=== PATIENT | female | born 1975 | race Caucasian/White ===

== ENCOUNTER 2019-06-22 01:24 | Observation (INO) ==
[2019-06-22 02:02] LABS: Microscopic, Urine URINE MICROSCOPIC (MICROSCOPIC)
[2019-06-22 02:05] LABS: Basophils # 0.1 K/mm3 (0-0.2); Basophils % 0.9 % (0.1-2.0); Eosinophils # 0.1 K/mm3 (0.0-0.4); Eosinophils % 1.4 % (0.1-12.0); Hematocrit 42.2 % (37.0-47.0); Hemoglobin 14.2 g/dL (12.2-16.2); Lymphocytes % 38.5 % (10-50); Mean Corpuscular HGB Conc 33.6 g/dL (31.8-35.4); Mean Platelet Volume 7.9 fl (7.4-10.4); Monocytes # 0.6 K/mm3 (0.1-1.0); Neutrophils # 5.6 K/mm3 (1.8-7.8); Neutrophils % 53.2 % (37.0-80.0); Platelet Count 357 K/mm3 (142-424); Red Blood Count 4.97 M/mm3 (4.20-5.40); White Blood Count 10.5 K/mm3 (4.8-10.8)
[2019-06-22 02:12] LABS: Appearance,Urine CLEAR (Clear); Bilirubin,Urine Negative (Negative); Blood, Urine Negative (Negative); Color,Urine YELLOW (Yellow); Glucose,Urine (UA) Negative (Negative); Ketones,Urine Negative (Negative); Leukocyte Esterase,Urine Negative (Negative); Protein,Urine Negative (Negative); Specific Gravity, Urine 1.015 (1.005-1.030); Urobilinogen,Urine 0.2 EU/dl (0.2)
[2019-06-22 02:18] LABS: Amphetamine/Metha Screen,Urine Negative ng/mL (<1000); Barbiturates Screen,Urine Negative ng/mL (<200); Benzodiazepines Screen,Urine Negative ng/mL (<200); Cannabinoid Screen,Urine Negative ng/mL (<50); Cocaine Screen,Urine Negative ng/mL (<300); Methadone Screen,Urine Negative ng/mL (<300); Opiate Screen,Urine Negative ng/mL (<300); Phencyclidine Screen,Urine Negative ng/mL (<25)
[2019-06-22 02:20] LABS: Anion Gap 14.5 mEq/L (5-15); Blood Urea Nitrogen 7 mg/dL (7-18); C-Reactive Protein 0.4 mg/dL (0.0-0.9); Calcium 9.3 mg/dL (8.5-10.1); Carbon Dioxide 26 mmol/L (21.0-32.0); Chloride 104 mmol/L (98-107); Glucose 100 mg/dL (74-106); Sodium 141 mmol/L (136-145)
--- NOTE | 2019-06-22 02:47 | Emergency Department Note ---
ED Disposition Clinical Impression: Obesity (BMI 30.0-34.9), Tobacco use Chest pain Qualifiers: Chest pain type: precordial pain Qualified Code(s): R07.2 - Precordial pain Disposition: Admitted as Observation Condition on Discharge: Good Referrals: Provider,Referral, [Primary Care Provider] - - Critical Care Critical Care Time: No Attestation: On 06/22/19, the high probability of a clinically significant, sudden or life threatening deterioration of the following system(s) required my full and direct attention, intervention and personal management. The time I documented below is in addition to time spent performing reported procedures but includes the following listed in this critical care notation. Medical Decision Making - Medical Records Medical records reviewed: Yes: I reviewed the patient's medical records. - Alphonso Inquiry Pt receiving controlled substance: No Vital Signs: 06/22/19 01:26 Temperature 97.8 F Temperature Source Oral Pulse Rate [Right Brachial] 82 Respiratory Rate 18 Blood Pressure [Right Arm] 127/85 Blood Pressure Mean [Right Arm] 99 Blood Pressure Source [Right Arm] Automatic Cuff Blood Pressure Position [Right Arm] Sitting 02 Sat by Pulse Oximetry 95 - Lab Data Lab results reviewed: Yes: I reviewed the patient's lab results. Lab Results 06/22/19 01:51: WBC 10.5, RBC 4.97, Hgb 14.2, Hct 42.2, MCV 85.0, MCH 28.6, MCHC 33.6, RDW 14.0, Plt Count 357, MPV 7.9, Neut % (Auto) 53.2, Lymph % (Auto) 38.5, [place] % (Auto) 6.0, Eos % (Auto) 1.4, Baso % (Auto) 0.9, Neut # (Auto) 5.6, Lymph # (Auto) 4.0, [place] # (Auto) 0.6, Eos # (Auto) 0.1, Baso # (Auto) 0.1, ESR 10 06/22/19 01:51: Sodium 141, Potassium 3.5, Chloride 104, Carbon Dioxide 26, Anion Gap 14.5, BUN 7, Creatinine 0.57, Estimated Creat Clear 187, Estimated GFR 116, Est GFR ( Amer) 141, Glucose 100, Calcium 9.3, Troponin I < 0.02, C- Reactive Protein 0.4 06/22/19 01:51: B-Natriuretic Peptide < 5 06/22/19 01:55: Urine Color Yellow, Urine Appearance Clear, Urine pH 6.0, Ur Specific [place] 1.015, Urine Protein Negative, Urine Glucose (UA) Negative, Urine Ketones Negative, Urine Blood Negative, Urine Nitrate Negative, Urine Bilirubin Negative, Urine Urobilinogen 0.2, Ur Leukocyte Esterase Negative, Urine WBC Occasional, Ur Squamous Epith Cells Occasional, Urine Bacteria Trace 06/22/19 01:55: Urine HCG, Qual Negative 06/22/19 01:55: Urine Opiates Screen Negative, Urine Methadone Screen Negative, Ur Barbituates Screen Negative, Ur Phencyclidine Scrn Negative, Ur Amphetamines Screen Negative, U Benzodiazepines Scrn Negative, Urine Cocaine Screen Negative, U Marijuana (THC) Screen Negative Result diagrams: 06/22/19 01:51 06/22/19 01:51 Orders (Tests/Meds): ED MEDICATIONS Generic Name Dose Route Start Last Admin Trade Name Freq PRN Reason Stop Dose Admin Sodium Chloride 1,000 mls @ 999 mls/hr 06/22/19 01:45 06/22/19 02:00 Sod Chlor 0.9% 1000ml Bag IV 06/22/19 02:45 999 mls/hr .Q1H1M NAVIN Administration Discontinued Medications Generic Name Dose Route Start Last Admin Trade Name Freq PRN Reason Stop Dose Admin Nitroglycerin 1 gm 06/22/19 02:44 06/22/19 02:45 Nitroglycerin 1 Inch Oint Udp TD 06/22/19 02:45 1 gm ONCE ONE Administration ORDERS Category Date Time Status XR chest 2V Stat Exams 06/22/19 01:35 Taken Troponin I Q3H Lab 06/22/19 04:45 Ordered Troponin I Q3H Lab 06/22/19 07:45 Ordered - Radiology Data #1 Image(s): Chest Image Reviewed: Yes I reviewed the patient's radiology image Preliminary Findings: Normal/NAD - ECG Data Tracing #1 Normal Sinus Rhythm: Yes Ischemic changes: non-specific ST-T wave changes - Physician Consults Physician Consulted: tiago Reason -: Admission Chest Pain HPI - General Chief Complaint: Chest Pain Stated Complaint: chest pain Time Seen by Provider: 06/22/19 02:00 Mode of Arrival: EMS Source of Information: Patient, EMS, Medical Record Limitations: No Limitations Description of Symptoms (Recalled from ER Triage Doc. by RN): Patient brought in by [facility] from [facility] in [place] with report of chest pressure. Patient received nitro in route to [facility] and her chest pain was relieved. Patient is a known IV drug user but reports she has not used in 9 days. - History of Present Illness HPI narrative: pt with progressive chest pain - tightness and has hx of htn and tob use and pos fh with relief with ntg MD complaint: chest pain indicative of cardiac Onset (ago): hour(s) Duration: now resolved Activity at onset: during rest Pain location: left chest Severity: moderate Relieving factors: nitroglycerin Risk Factors for CAD: Hypertension, Family Hx of CAD, Smoking Treatments prior to or on arrival for Cardiac Chest Pain: none - CHU Score for Non-Stemi Age of Patient: 40-49 years old Heart Rate: 70-89 bpm Systolic Blood Pressure: 120-139 mmhg Serum Creatinine: 0.40-0.79 mg/dl CHF [place] Class: I-No CHF Other Risk Factors: None Non-Stemi Risk Score: 72 - Related Data On Oral Contraceptives: No Allergies Allergy/AdvReac Type Severity Reaction Status Date / Time aspirin AdvReac Verified 06/22/19 01:34 [facility] History - Hepatitis A Screen Drug use history?: No High risk sexual behaviors?: No History of sexually transmitted infection?: No Currently employed?: No Childcare worker?: No Do you have indoor plumbing?: Yes Do you have electricity?: Yes Attestation statement:: This patient has been screened for Hepatitis A risk factors. I have reviewed the patient's past medical history: Yes - Social History Smoking Status: Current every day smoker # Packs/Day (cigarettes): 1 Alcohol Intake: never Occupational Status: unemployed ROS Obtained: Yes All systems reviewed & no additional complaints - Constitutional Constitutional: Denies fever(s) - Eyes Eyes: Denies change in vision - ENT Ears, Nose, Mouth, and Throat: Denies sore throat - Cardiovascular Cardiovascular: Reports chest pain, Reports dyspnea, Reports radiating jaw, neck or arm pain - Respiratory Respiratory: No cough - Gastrointestinal Gastrointestingal: Denies: abdominal pain, nausea, vomiting - Genitourinary Female Genitourinary: Denies hematuria - Musculoskeletal Musculoskeletal: Denies joint swelling - Integumentary/Breasts Skin/Breast: Denies rash - Neurologic Neurologic: Denies seizure-like activity Physical Exam - General General appearance: alert, obese - Head Head exam: normocephalic - Eye Eye exam: Present: PERRL, EOMI. Absent: scleral icterus - ENT ENT exam: Present: mucous membranes dry - Neck Neck exam: Present: trachea midline - Respiratory Respiratory exam: Present: normal lung sounds bilaterally. Absent: respiratory distress - Cardiovascular Cardiovascular exam: Present: regular rate, systolic murmur - Abdominal Exam Abdominal exam: Present: soft - Extremities Exam Extremities exam: Present: full ROM. Absent: calf tenderness - Neurological Exam Neurological exam: Present: alert, oriented X3, CN II-XII intact - Psychiatric Psychiatric exam: Present: normal affect - Skin Skin exam: Absent: rash
[2019-06-22 02:52] LABS: Erythrocyte Sedimentation Rate 10 mm/hr (0-20)
[2019-06-22 02:57] LABS: Bacteria,Urine Trace /lpf; Squamous Epithelial Cell,Urine Occasional #/hpf (0-5); WBC,Urine Occasional #/hpf (0-3)
--- NOTE | 2019-06-22 07:46 | Pharmacy Consult Notes ---
[facility] Pharmacy VTE Monitoring - Patient Demographics Admission date: 06/22/19 Report Date: 06/22/19 Time: 07:46 Allergies/Adverse Reactions: Patient Allergies aspirin Adverse Reaction (Verified 06/22/19 01:34) Height: 1.65 m Weight: 93.525 kg Patient Problems: Current Active Problems Chest pain (Acute) Obesity (BMI 30.0-34.9) (Acute) Tobacco use (Acute) - VTE Risk Labs: VTE Related Lab Results Hgb 14.2 g/dL (12.2-16.2) 06/22/19 01:51 Hct 42.2 % (37.0-47.0) 06/22/19 01:51 Plt Count 357 K/mm3 (142-424) 06/22/19 01:51 BUN 7 mg/dL (7-18) 06/22/19 01:51 Creatinine 0.57 mg/dL (0.55-1.02) 06/22/19 01:51 Estimated Creat Clear 187 mL/min (50-200) 06/22/19 01:51 Was VTE Risk Assessment Performed: Yes VTE Score: 4 VTE Risk Level: Low Risk Clinical Trial Participant: No - Prophylaxis VTE Prophylaxis Ordered?: Yes Types of VTE Prophylaxis: TEDS Knee High
--- NOTE | 2019-06-22 08:20 | History & Physical Report ---
*Admission Date: 06/22/19 <TamarMarika 06/22/19 08:30> *Chief complaint: Chest pain <Marika Boyle 06/22/19 08:30> *History of present illness: Ms. Cortez is a 43-year-old female with a history of alcoholism and IV drug usage who presented to [facility] emergency room via ambulance from drug rehab center in [facility]. She states she has been there for 9 to 10 days detoxing and rehabing from IV heroin usage. She has been having chest discomfort for the past 3 to 4 days which has occured nightly after going to bed. She describes last night as being the worst with midsternal chest discomfort associated with her heart pounding and discomfort radiating down her left arm. She was also short of breath. She describes some nausea and no vomiting. EMS was notified and she was brought to the hospital. In route she received nitroglycerin which did relieve her symptoms. Cardiology was consulted in the emergency room and admission was advised. Troponin I's have been negative thus far. Cardiology will see this AM. Exam this morning patient is comfortable. Somewhat anxious. <Marika Boyle 06/22/19 08:30> [facility] History Medical History: Reports:: Gastroesophageal Reflux Disease(GERD) Denies:: Cancer, Diabetes Mellitus Type 1, Diabetes Mellitus Type 2, Internal Pacemaker, MRSA, Seizures <Marika Boyle 06/22/19 08:30> *Have you ever received a pneumonia vaccine?: No <Marika Boyle 06/22/19 08:30> *Have you received a flu vaccine this season?: No <Marika Boyle 06/22/19 08:30> Laterality Cases: Left: Other <Marika Boyle 06/22/19 08:30> Other Surgeries: No: Pacemaker <Marika Boyle 06/22/19 08:30> Amputation: No <Marika Boyle 06/22/19 08:30> Fractures: Yes (toes and fingers) <Marika Boyle 06/22/19 08:30> Comment: She has had several sinus surgeries. Has had a colonoscopy many years ago with polypectomies <Marika Boyle 06/22/19 08:30> - *Social History Educational Level: Completed High School <Boyle,Marika - 06/22/19 08:30> Smoking Status: Current every day smoker <TamarMarika 06/22/19 08:30> Tobacco Type: cigarettes <Boyle,Marika 06/22/19 08:30> # Packs/Day (cigarettes): 1 <Boyle,Marika 06/22/19 08:30> Alcohol Intake: former <TamarMarika 06/22/19 08:30> Substance Use Type: former substance user, heroin <Boyle,Marika 06/22/19 08:30> Last Used Substance: days (ago) <Boyle,Marika 06/22/19 08:30> *Occupational Status:: unemployed <TamarMarika 06/22/19 08:30> *Travel in the last 8 weeks: None <Marika Boyle 06/22/19 08:30> Family Hx:: Cancer, Coronary Artery Disease <Marika Boyle 06/22/19 08:30> : 0 <Marika Boyle 06/22/19 08:30> LMP comments: post menopausal <TamarMarika 06/22/19 08:30> Review of Systems - Constitutional Denies chills, Denies fever(s), Denies weakness <Marika Byole 06/22/19 08:30> - Eyes Reports change in vision, Reports double vision <Marika Boyle 06/22/19 08:30> - ENT Denies ear pain, Denies sore throat <Marika Boyle 06/22/19 08:30> - *Cardiovascular Reports chest pain, Reports shortness of breath, Reports rapid, pounding, or irregular heartbeat, Reports radiating jaw, neck or arm pain, Denies excessive sweating, Denies irregular heart rhythm <Marika Boyle 06/22/19 08:30> - *Respiratory Reports shortness of breath, Denies cough <Marika Boyle 06/22/19 08:30> - *Gastrointestinal Reports heartburn, Reports bright, red blood in stools, Denies abdominal pain, Denies constipation, Denies loose stools, Denies vomiting blood, Denies nausea, Denies vomiting <Marika Boyle 06/22/19 08:30> - *Genitourinary Reports absent period, Denies difficulty urinating <Marika Boyle - 06/22/19 08:30> - *Musculoskeletal Reports joint pain (Knees), Denies abnormal walking <Marika Boyle - 06/22/19 08:30> - *Neurologic Denies abnormal walking, Denies headache(s), Denies seizure-like activity <Marika Boyle - 06/22/19 08:30> - Psychiatric Reports abnormal sleep pattern, Reports anxiety <Marika Boyle - 06/22/19 08:30> Meds Home Medications Medication Instructions Recorded Confirmed Type Albuterol Sulfate [Albuterol HFA 1 - 2 puffs IH Q4-6H PRN 06/22/19 06/22/19 History Inhaler] Quetiapine Fumarate [Seroquel 100 mg PO HS 06/22/19 06/22/19 History 100mg tablet] Sertraline HCl [Zoloft 50mg tablet] 50 mg PO DAILY 06/22/19 06/22/19 History hydrOXYzine pamoate [Vistaril] 50 mg PO TID 06/22/19 06/22/19 History <Pee Best - 06/22/19 14:42> Allergies Allergy/AdvReac Type Severity Reaction Status Date / Time aspirin AdvReac Verified 06/22/19 01:34 <Pee Best - 06/22/19 14:42> Exam Vital signs and Labs for Last 24 Hours: Temp Pulse Resp BP Pulse Ox 98.1 F 85 18 127/71 93 L 06/22/19 12:00 06/22/19 14:34 06/22/19 14:34 06/22/19 14:34 06/22/19 14:34 Laboratory Results - last 24 hr 06/22/19 01:51: WBC 10.5, RBC 4.97, Hgb 14.2, Hct 42.2, MCV 85.0, MCH 28.6, MCHC 33.6, RDW 14.0, Plt Count 357, MPV 7.9, Neut % (Auto) 53.2, Lymph % (Auto) 38.5, [place] % (Auto) 6.0, Eos % (Auto) 1.4, Baso % (Auto) 0.9, Neut # (Auto) 5.6, Lymph # (Auto) 4.0, [place] # (Auto) 0.6, Eos # (Auto) 0.1, Baso # (Auto) 0.1, ESR 10 06/22/19 01:51: Sodium 141, Potassium 3.5, Chloride 104, Carbon Dioxide 26, A nion Gap 14.5, BUN 7, Creatinine 0.57, Estimated Creat Clear 187, Estimated GFR 116, Est GFR ( Amer) 141, Glucose 100, Calcium 9.3, Troponin I < 0.02, C- Reactive Protein 0.4 06/22/19 01:51: B-Natriuretic Peptide < 5 06/22/19 01:55: Urine Color Yellow, Urine Appearance Clear, Urine pH 6.0, Ur Specific [place] 1.015, Urine Protein Negative, Urine Glucose (UA) Negative, Urine Ketones Negative, Urine Blood Negative, Urine Nitrate Negative, Urine Bilirubin Negative, Urine Urobilinogen 0.2, Ur Leukocyte Esterase Negative, Urine WBC Occasional, Ur Squamous Epith Cells Occasional, Urine Bacteria Trace 06/22/19 01:55: Urine HCG, Qual Negative 06/22/19 01:55: Urine Opiates Screen Negative, Urine Methadone Screen Negative, Ur Barbituates Screen Negative, Ur Phencyclidine Scrn Negative, Ur Amphetamines Screen Negative, U Benzodiazepines Scrn Negative, Urine Cocaine Screen Negative, U Marijuana (THC) Screen Negative 06/22/19 05:20: Troponin I < 0.02 06/22/19 07:50: Troponin I < 0.02 06/22/19 07:50: Total Bilirubin 0.2, Direct Bilirubin 0.1, Indirect Bilirubin 0.1, AST 7 L, ALT 15, Alkaline Phosphatase 96, Total Protein 6.9, Albumin 3.6, Triglycerides 101, Cholesterol 99 L, LDL Cholesterol 36, VLDL Cholesterol 20, HDL Cholesterol 43, Cholesterol/HDL Ratio 2.3 06/22/19 13:55: Serum HCG, Qual Negative <EstephaniaPee white - 06/22/19 14:42> Temp Pulse Resp BP Pulse Ox 98.3 F 87 16 142/74 H 98 06/22/19 06:20 06/22/19 06:20 06/22/19 06:20 06/22/19 06:20 06/22/19 06:20 Laboratory Results - last 24 hr 06/22/19 01:51: WBC 10.5, RBC 4.97, Hgb 14.2, Hct 42.2, MCV 85.0, MCH 28.6, MCHC 33.6, RDW 14.0, Plt Count 357, MPV 7.9, Neut % (Auto) 53.2, Lymph % (Auto) 38.5, [place] % (Auto) 6.0, Eos % (Auto) 1.4, Baso % (Auto) 0.9, Neut # (Auto) 5.6, Lymph # (Auto) 4.0, [place] # (Auto) 0.6, Eos # (Auto) 0.1, Baso # (Auto) 0.1, ESR 10 06/22/19 01:51: Sodium 141, Potassium 3.5, Chloride 104, Carbon Dioxide 26, Anion Gap 14.5, BUN 7, Creatinine 0.57, Estimated Creat Clear 187, Estimated GFR 116, Est GFR ( Amer) 141, Glucose 100, Calcium 9.3, Troponin I < 0.02, C-Reactive Protein 0.4 06/22/19 01:51: B-Natriuretic Peptide < 5 06/22/19 01:55: Urine Color Yellow, Urine Appearance Clear, Urine pH 6.0, Ur Specific [place] 1.015, Urine Protein Negative, Urine Glucose (UA) Negative, Urine Ketones Negative, Urine Blood Negative, Urine Nitrate Negative, Urine Bilirubin Negative, Urine Urobilinogen 0.2, Ur Leukocyte Esterase Negative, Urine WBC Occasional, Ur Squamous Epith Cells Occasional, Urine Bacteria Trace 06/22/19 01:55: Urine HCG, Qual Negative 06/22/19 01:55: Urine Opiates Screen Negative, Urine Methadone Screen Negative, Ur Barbituates Screen Negative, Ur Phencyclidine Scrn Negative, Ur Amphetamines Screen Negative, U Benzodiazepines Scrn Negative, Urine Cocaine Screen Negative, U Marijuana (THC) Screen Negative 06/22/19 05:20: Troponin I < 0.02 <Marika Boyle - 06/22/19 08:30> I & O for Last 24 hours: Intake & Output 06/20/19 06/21/19 06/22/19 06/23/19 11:59 11:59 11:59 11:59 Intake Total 620 / 620 Balance 620 / 620 Weight 206 lb 3 oz <Pee Best - 06/22/19 14:42> Intake & Output 06/19/19 06/20/19 06/21/19 06/22/19 11:59 11:59 11:59 11:59 Weight 206 lb 3 oz <Marika Boyle - 06/22/19 08:30> Radiology Reports for the Last 24 Hours: 06/22/2019 chest x-ray IMPRESSION: Left basilar infiltrate <BoyleMarika 06/22/19 08:30> - Constitutional no acute distress <BoyleMarika berg 06/22/19 08:30> Comments: Appears comfortable <BoyleMarika berg 06/22/19 08:30> - *Routine HEENT Exam Head: Present: normocephalic, atraumatic <Boyle,Marika 06/22/19 08:30> Eye: Present: PERRL. Absent: scleral injection, conjunctivae pink <Marika Boyle 06/22/19 08:30> ENT: Present: mucous membranes moist, oropharynx clear <Marika Boyle 06/22/19 08:30> - *Routine Neck Exam Present: supple. Absent: carotid bruit, lymphadenopathy, thyromegaly <TamarMarika 06/22/19 08:30> - *Routine Respiratory Exam Present: CTA bilaterally (Anteriorly and posteriorly) <Marika Boyle 06/22/19 08:30> - *Routine Cardiovascular Exam Present: RRR (monitor shows sinus rhythm) <Marika Boyle 06/22/19 08:30> - *Routine Abdominal Exam Present: soft, normoactive bowel sounds. Absent: tenderness, distended, guarding <Marika Boyle 06/22/19 08:30> - *Routine Extremities Exam Present: YELENA stockings (On bilateral lower legs). Absent: edema <Marika Boyle 06/22/19 08:30> - *Routine Neurological Exam Present: alert, oriented X3 <Marika Boyle 06/22/19 08:30> - Routine Psychiatric Exam Present: normal thought process, anxious <Marika Boyle 06/22/19 08:30> Assessment and Plan (1) Chest pain Current visit: Yes Status: Acute Qualifiers: Chest pain type: precordial pain Qualified Code(s): R07.2 - Precordial pain Category: Medical Code(s): R07.9 - Chest pain, unspecified (2) Heroin addiction Current visit: Yes Status: Chronic Category: Medical Code(s): F11.20 - Opioid dependence, uncomplicated (3) Tobacco use Current visit: Yes Status: Chronic Category: Medical Code(s): Z72.0 - Tobacco use (4) Obesity (BMI 30.0-34.9) Current visit: Yes Status: Chronic Category: Medical Code(s): E66.9 - O besity, unspecified <Pee Best - 06/22/19 14:42> (1) Chest pain Current visit: Yes Status: Acute Qualifiers: Chest pain type: precordial pain Qualified Code(s): R07.2 - Precordial pain Category: Medical Code(s): R07.9 - Chest pain, unspecified (2) Heroin addiction Current visit: Yes Status: Chronic Category: Medical Code(s): F11.20 - Opioid dependence, uncomplicated (3) Tobacco use Current visit: Yes Status: Chronic Category: Medical Code(s): Z72.0 - Tobacco use <Marika Boyle - 06/22/19 08:10> - Assessment and plan all Dx Assessment and Plan for all problems:: Patient seen and examined this morning. She denies chest pain or pressure at this time. She is a bit anxious. We will consult cardiology and defer to their recommendations. <Pee Best - 06/22/19 14:42> Patient has been admitted for cardiac work-up. She will be seen by cardiology today. <Marika Boyle - 06/22/19 08:30>
--- NOTE | 2019-06-22 09:08 | Consult Report ---
History of Present Illness Consult date: 06/22/19 Requesting physician: Kal Cardona Consult reason: chest pain Chief complaint: chest pain Additional Medical History:: 1. heroin user History of present illness: This is a 43-year-old white female who was admitted to the hospital with chest pain. The patient does report that she is a heroin addict and she stopped using heroin about 10 days ago. She states that she quit cold turkey but is in treatment in [facility]. The patient states that she lives 3 hours away from here and was sent to [place] for treatment for her heroin addiction. She states that when she woke up around 12:30 AM with tightness in the center of her chest. She states that it was a severe tight sensation. Her heart was pounding but not racing. She states that she had numbness under her left arm and her entire left arm felt weird. She states that she was a little short of breath. Denies any nausea or vomiting. The patient states that this was constant and did not improve until she was given nitroglycerin. The patient states that she has never had symptoms like this before when withdrawing from heroin and that is why she decided to come into the emergency department. She states that she has not had this type of chest pain or pressure before. She reports that her mother had atrial fibrillation with a cardioversion x2 and an ablation. She states her mother 2 weeks after her ablation. Her father has an enlarged heart. She denies any family history of coronary artery disease or MN. She denies any personal history of coronary artery disease or MN. She is a 1 pack/day smoker. She denies any hypertension, hyperlipidemia or diabetes. She denies any fever, chills, nausea, vomiting, diarrhea, PND or orthopnea. [facility] History I have reviewed the patient's past medical history: Yes Medical History: Reports:: Gastroesophageal Reflux Disease(GERD) Denies:: Cancer, Diabetes Mellitus Type 1, Diabetes Mellitus Type 2, Internal Pacemaker, MRSA, Seizures *Have you ever received a pneumonia vaccine?: No *Have you received a flu vaccine this season?: No Comment:: Heroin drug user Laterality Cases: Left: Other Other Surgeries: No: Pacemaker Amputation: No Fractures: Yes (toes and fingers) - *Social History Educational Level: Completed High School Smoking Status: Current every day smoker Tobacco Type: cigarettes # Packs/Day (cigarettes): 1 Alcohol Intake: former Substance Use Type: former substance user, heroin Last Used Substance: days (ago) (10) *Occupational Status:: unemployed *Travel in the last 8 weeks: None - Psychiatric History Expresses thoughts of harming self/others: None Pschychiatric History:: Reports:: Psychiatric Treatment Family Hx:: Cancer Comment: Mother with atrial fibrillation, mother 2 weeks after an ablation, and father with an enlarged heart LMP comments: post menopausal Meds Home Medications Medication Instructions Recorded Confirmed Type Albuterol Sulfate [Albuterol HFA 1 - 2 puffs IH Q4-6H PRN 06/22/19 06/22/19 History Inhaler] Quetiapine Fumarate [Seroquel 100 mg PO HS 06/22/19 06/22/19 History 100mg tablet] Sertraline HCl [Zoloft 50mg tablet] 50 mg PO DAILY 06/22/19 06/22/19 History hydrOXYzine pamoate [Vistaril] 50 mg PO TID 06/22/19 06/22/19 History Allergies Allergy/AdvReac Type Severity Reaction Status Date / Time aspirin AdvReac Verified 06/22/19 01:34 Review of Systems - Review of Systems Review of systems:: pertinent systems reviewed and negative unless documented below - Constitutional Reports fatigue, Reports lack of energy - *Cardiovascular Reports chest pain, Reports chest pain at rest, Reports chest pain with activity, Reports rapid, pounding, or irregular heartbeat, Reports radiating jaw, neck or arm pain (Radiating to left arm causing numbness) - *Respiratory Reports shortness of breath, Reports shortness of breath with activity - *Neurologic Denies abnormal walking, Denies headache(s), Denies seizure-like activity, Denies weakness Exam Vital signs and Labs for Last 24 Hours: Temp Pulse Resp BP Pulse Ox 98.3 F 87 16 142/74 H 98 06/22/19 06:20 06/22/19 06:20 06/22/19 06:20 06/22/19 06:20 06/22/19 06:20 Laboratory Results - last 24 hr 06/22/19 01:51: WBC 10.5, RBC 4.97, Hgb 14.2, Hct 42.2, MCV 85.0, MCH 28.6, MCHC 33.6, RDW 14.0, Plt Count 357, MPV 7.9, Neut % (Auto) 53.2, Lymph % (Auto) 38.5, [place] % (Auto) 6.0, Eos % (Auto) 1.4, Baso % (Auto) 0.9, Neut # (Auto) 5.6, Lymph # (Auto) 4.0, [place] # (Auto) 0.6, Eos # (Auto) 0.1, Baso # (Auto) 0.1, ESR 10 06/22/19 01:51: Sodium 141, Potassium 3.5, Chloride 104, Carbon Dioxide 26, Anion Gap 14.5, BUN 7, Creatinine 0.57, Estimated Creat Clear 187, Estimated GFR 116, Est GFR ( Amer) 141, Glucose 100, Calcium 9.3, Troponin I < 0.02, C-Reactive Protein 0.4 06/22/19 01:51: B-Natriuretic Peptide < 5 06/22/19 01:55: Urine Color Yellow, Urine Appearance Clear, Urine pH 6.0, Ur Specific Clubb 1.015, Urine Protein Negative, Urine Glucose (UA) Negative, Urine Ketones Negative, Urine Blood Negative, Urine Nitrate Negative, Urine Bilirubin Negative, Urine Urobilinogen 0.2, Ur Leukocyte Esterase Negative, Urine WBC Occasional, Ur Squamous Epith Cells Occasional, Urine Bacteria Trace 06/22/19 01:55: Urine HCG, Qual Negative 06/22/19 01:55: Urine Opiates Screen Negative, Urine Methadone Screen Negative, Ur Barbituates Screen Negative, Ur Phencyclidine Scrn Negative, Ur Amphetamines Screen Negative, U Benzodiazepines Scrn Negative, Urine Cocaine Screen Negative, U Marijuana (THC) Screen Negative 06/22/19 05:20: Troponin I < 0.02 06/22/19 07:50: Troponin I < 0.02 I & O for Last 24 hours: Intake & Output 06/19/19 06/20/19 06/21/19 06/22/19 23:59 23:59 23:59 23:59 Weight 206 lb 3 oz Narrative: EKG is sinus rhythm with nonspecific T wave abnormalities and a rate of 88. - Constitutional no acute distress, obese - *Routine HEENT Exam Head: Present: normocephalic, atraumatic Eye: Present: EOMI, PERRL ENT: Present: mucous membranes moist - *Routine Neck Exam Present: supple, full ROM, normal carotid upstroke. Absent: JVD, carotid bruit, lymphadenopathy - *Routine Respiratory Exam Present: CTA bilaterally - *Routine Cardiovascular Exam Present: RRR, Normal S1, Normal S2. Absent: murmur, gallop - *Routine Abdominal Exam Present: soft, normoactive bowel sounds. Absent: tenderness, distended, rebound - *Routine Extremities Exam Present: full ROM, pulses intact, normal capillary refill. Absent: cyanosis, clubbing, edema - *Routine Skin Exam Present: intact, warm. Absent: erythema, rash - *Routine Neurological Exam Present: alert, oriented X3, CN II-XII intact. Absent: sensory deficit, motor deficit - Routine Psychiatric Exam Present: normal affect, normal thought process - Detailed Eye Exam Eyelids: Left normal inspection Assessment and Plan (1) Chest pain Current visit: Yes Status: Acute Qualifiers: Chest pain type: precordial pain Qualified Code(s): R07.2 - Precordial pain Category: Medical Code(s): R07.9 - Chest pain, unspecified (2) Heroin addiction Current visit: Yes Status: Chronic Category: Medical Code(s): F11.20 - Opioid dependence, uncomplicated (3) Tobacco use Current visit: Yes Status: Chronic Category: Medical Code(s): Z72.0 - Tob acco use (4) Obesity (BMI 30.0-34.9) Current visit: Yes Status: Chronic Category: Medical Code(s): E66.9 - Obesity, unspecified - Assessment and plan all Dx Assessment and Plan for all problems:: Plan: 1. Patient admitted to the hospital with chest pain. She has ruled out for an MN with negative troponins. The patient is a heroin addict and has not used heroin within the last 10 days. The patient is going through withdrawal at this time. However given her chest pain we will set her up for an ischemic evaluation. 2. We will get an echocardiogram to evaluate her LV function and to evaluate her heart structurally given her IV drug use. 3. We will set her up for a GXT to rule out ischemia. 4. Her blood pressure is acceptable at this time. 5. Her LDL goal is less than 100. We will add on a lipid panel and liver panel. 6. Tobacco cessation is highly advised and counseled. 7. As mentioned above she is a heroin addict. She was currently in a program for detox in [place]. Will defer this to her primary care provider. 8. Further recommendations will be made pending the patient's results of her echocardiogram and GXT today. Thank you for the opportunity to help participate in the care of this patient.
[2019-06-22 09:35] LABS: Albumin Level 3.6 gm/dL (3.4-5.0); Bilirubin,Direct 0.1 mg/dL (0.0-0.2); Bilirubin,Indirect 0.1 mg/dL (0.0-0.9); Bilirubin,Total 0.2 mg/dL (0.2-1.0); Chol/HDL Ratio 2.3 (1-3.5); Total Protein,Serum 6.9 gm/dL (6.4-8.2)
[2019-06-23 06:16] LABS: Basophils # 0.1 K/mm3 (0-0.2); Basophils % 0.9 % (0.1-2.0); Eosinophils # 0.1 K/mm3 (0.0-0.4); Eosinophils % 1.3 % (0.1-12.0); Hematocrit 42.1 % (37.0-47.0); Hemoglobin 13.6 g/dL (12.2-16.2); Lymphocytes # 3.2 K/mm3 (0.7-4.5); Lymphocytes % 38.4 % (10-50); Mean Corpuscular HGB Conc 32.2 g/dL (31.8-35.4); Mean Corpuscular Volume 90.2 fl (81-99); Mean Platelet Volume 7.6 fl (7.4-10.4); Monocytes # 0.5 K/mm3 (0.1-1.0); Neutrophils # 4.4 K/mm3 (1.8-7.8); Neutrophils % 53.4 % (37.0-80.0); Platelet Count 321 K/mm3 (142-424); Red Blood Count 4.67 M/mm3 (4.20-5.40); Red Cell Distribution Width 14.3 % (11.5-17.5); White Blood Count 8.3 K/mm3 (4.8-10.8)
[2019-06-23 06:20] LABS: Anion Gap 10.9 mEq/L (5-15); Calcium 8.9 mg/dL (8.5-10.1)
[2019-06-23 06:32] LABS: Chol/HDL Ratio 2.3 (1-3.5)
--- NOTE | 2019-06-23 07:53 | Progress Note ---
Subjective Date: 06/23/19 Time: 07:50 Principal diagnosis: chest pain Interval history: 43 yo WF in bed eating breakfast in NAD. No further chest pain overnight. Patient is anxious to get back to rehab. Exam Vital signs and Labs for Last 24 Hours: Temp Pulse Resp BP Pulse Ox 98.3 F 64 18 112/67 97 06/23/19 04:00 06/23/19 04:00 06/23/19 04:00 06/23/19 04:00 06/23/19 04:00 Laboratory Results - last 24 hr 06/22/19 07:50: Troponin I < 0.02 06/22/19 07:50: Total Bilirubin 0.2, Direct Bilirubin 0.1, Indirect Bilirubin 0.1, AST 7 L, ALT 15, Alkaline Phosphatase 96, Total Protein 6.9, Albumin 3.6, Triglycerides 101, Cholesterol 99 L, LDL Cholesterol 36, VLDL Cholesterol 20, HDL Cholesterol 43, Cholesterol/HDL Ratio 2.3 06/22/19 13:55: Serum HCG, Qual Negative 06/23/19 05:57: Magnesium 2.1, Triglycerides 62, Cholesterol 102 L, LDL Cholesterol 45, VLDL Cholesterol 12, HDL Cholesterol 45, Cholesterol/HDL Ratio 2.3 06/23/19 05:57: WBC 8.3, RBC 4.67, Hgb 13.6, Hct 42.1, MCV 90.2, MCH 29.0, MCHC 32.2, RDW 14.3, Plt Count 321, MPV 7.6, Neut % (Auto) 53.4, Lymph % (Auto) 38.4, [place] % (Auto) 6.0, Eos % (Auto) 1.3, Baso % (Auto) 0.9, Neut # (Auto) 4.4, Lymph # (Auto) 3.2, [place] # (Auto) 0.5, Eos # (Auto) 0.1, Baso # (Auto) 0.1 06/23/19 05:57: Sodium 140, Potassium 3.9, Chloride 108 H, Carbon Dioxide 25, Anion Gap 10.9, BUN 9 D, Creatinine 0.66, Estimated Creat Clear 164, Estimated GFR 98, Est GFR ( Amer) 119, Glucose 91, Calcium 8.9 I & O for Last 24 hours: Intake & Output 06/20/19 06/21/19 06/22/19/09/20 11:59 11:59 11:59 11:59 Intake Total 1696 / 1696 Balance 1696 / 1696 Weight 206 lb 3 oz 210 lb 6 oz - *Routine Respiratory Exam Present: CTA bilaterally. Absent: accessory muscle use, rales, rhonchi, wheezes - *Routine Cardiovascular Exam Present: RRR. Absent: murmur, gallop, rubs Progress Note: A&P (1) Chest pain Status: Acute Current Visit: Yes (2) Heroin addiction Status: Chronic Current Visit: Yes (3) Tobacco use Status: Chronic Current Visit: Yes (4) Obesity (BMI 30.0-34.9) Status: Chronic Current Visit: Yes Assessment and Plan for All Diagnoses:: 1. Normal coronary arteries by cardiac catheterization yesterday. 2. Okay from cardiology standpoint for discharge back to rehab. Patient does not need follow-up from a cardiac standpoint.
--- NOTE | 2019-06-23 08:07 | Progress Note ---
<Pam Mae - Last Filed: 06/23/19 08:04> Internal Medicine - PN: Subj *Date: 06/23/19 *Time: 08:04 Interval history: Patient states she is feeling well this morning. She has no further chest pain and denies any shortness of breath. She states she slept better last night than she slept in a long time. She ate most of her breakfast this morning and is anxious to go home. Her cardiac cath was normal. Exam Vital signs and Labs for Last 24 Hours: Temp Pulse Resp BP Pulse Ox 98.3 F 64 18 112/67 97 06/23/19 04:00 06/23/19 04:00 06/23/19 04:00 06/23/19 04:00 06/23/19 04:00 Laboratory Results - last 24 hr 06/22/19 07:50: Troponin I < 0.02 06/22/19 07:50: Total Bilirubin 0.2, Direct Bilirubin 0.1, Indirect Bilirubin 0.1, AST 7 L, ALT 15, Alkaline Phosphatase 96, Total Protein 6.9, Albumin 3.6, Triglycerides 101, Cholesterol 99 L, LDL Cholesterol 36, VLDL Cholesterol 20, HDL Cholesterol 43, Cholesterol/HDL Ratio 2.3 06/22/19 13:55: Serum HCG, Qual Negative 06/23/19 05:57: Magnesium 2.1, Triglycerides 62, Cholesterol 102 L, LDL Cholesterol 45, VLDL Cholesterol 12, HDL Cholesterol 45, Cholesterol/HDL Ratio 2.3 06/23/19 05:57: WBC 8.3, RBC 4.67, Hgb 13.6, Hct 42.1, MCV 90.2, MCH 29.0, MCHC 32.2, RDW 14.3, Plt Count 321, MPV 7.6, Neut % (Auto) 53.4, Lymph % (Auto) 38.4, [place] % (Auto) 6.0, Eos % (Auto) 1.3, Baso % (Auto) 0.9, Neut # (Auto) 4.4, Lymph # (Auto) 3.2, [place] # (Auto) 0.5, Eos # (Auto) 0.1, Baso # (Auto) 0.1 06/23/19 05:57: Sodium 140, Potassium 3.9, Chloride 108 H, Carbon Dioxide 25, Anion Gap 10.9, BUN 9 D, Creatinine 0.66, Estimated Creat Clear 164, Estimated GFR 98, Est GFR ( Amer) 119, Glucose 91, Calcium 8.9 I & O for Last 24 hours: Intake & Output 06/20/19 06/21/19 06/22/19 06/23/19 11:59 11:59 11:59 11:59 Intake Total 1696 / 1696 Balance 1696 / 1696 Weight 206 lb 3 oz 210 lb 6 oz Radiology Reports for the Last 24 Hours: Cardiac cath IMPRESSION Normal coronary arteries Normal ejection fraction Normal left ventricular end-diastolic pressure PLAN 1. Medical management - Constitutional no acute distress - *Routine Respiratory Exam Present: CTA bilaterally - *Routine Cardiovascular Exam Present: RRR - *Routine Abdominal Exam Present: soft, normoactive bowel sounds. Absent: tenderness - *Routine Extremities Exam Absent: cyanosis, clubbing, edema - *Routine Skin Exam Present: warm. Absent: rash - *Routine Neurological Exam Present: alert, oriented X3 Assessment and Plan (1) Chest pain Current visit: Yes Status: Acute Qualifiers: Chest pain type: precordial pain Qualified Code(s): R07.2 - Precordial pain Category: Medical Code(s): R07.9 - Chest pain, unspecified (2) Heroin addiction Current visit: Yes Status: Chronic Category: Medical Code(s): F11.20 - Opioid dependence, uncomplicated (3) Tobacco use Current visit: Yes Status: Chronic Category: Medical Code(s): Z72.0 - Tobacco use (4) Obesity (BMI 30.0-34.9) Current visit: Yes Status: Chronic Category: Medical Code(s): E66.9 - Obesity, unspecified - Assessment and plan all Dx Assessment and Plan for all problems:: Patient is ready for discharge today to her rehab facility. We will get care management to arrange transportation. <Pee Best - Last Filed: 06/23/19 08:18> Internal Medicine - PN: Subj *Date: 06/23/19 *Time: 08:16 Exam Vital signs and Labs for Last 24 Hours: Temp Pulse Resp BP Pulse Ox 98.3 F 64 18 112/67 97 06/23/19 04:00 06/23/19 04:00 06/23/19 04:00 06/23/19 04:00 06/23/19 04:00 Laboratory Results - last 24 hr 06/22/19 07:50: Troponin I < 0.02 06/22/19 07:50: Total Bilirubin 0.2, Direct Bilirubin 0.1, Indirect Bilirubin 0.1, AST 7 L, ALT 15, Alkaline Phosphatase 96, Total Protein 6.9, Albumin 3.6, Triglycerides 101, Cholesterol 99 L, LDL Cholesterol 36, VLDL Cholesterol 20, HDL Cholesterol 43, Cholesterol/HDL Ratio 2.3 06/22/19 13:55: Serum HCG, Qual Negative 06/23/19 05:57: Magnesium 2.1, Triglycerides 62, Cholesterol 102 L, LDL Cholesterol 45, VLDL Cholesterol 12, HDL Cholesterol 45, Cholesterol/HDL Ratio 2.3 06/23/19 05:57: WBC 8.3, RBC 4.67, Hgb 13.6, Hct 42.1, MCV 90.2, MCH 29.0, MCHC 32.2, RDW 14.3, Plt Count 321, MPV 7.6, Neut % (Auto) 53.4, Lymph % (Auto) 38.4, [place] % (Auto) 6.0, Eos % (Auto) 1.3, Baso % (Auto) 0.9, Neut # (Auto) 4.4, Lymph # (Auto) 3.2, [place] # (Auto) 0.5, Eos # (Auto) 0.1, Baso # (Auto) 0.1 06/23/19 05:57: Sodium 140, Potassium 3.9, Chloride 108 H, Carbon Dioxide 25, Anion Gap 10.9, BUN 9 D, Creatinine 0.66, Estimated Creat Clear 164, Estimated GFR 98, Est GFR ( Amer) 119, Glucose 91, Calcium 8.9 I & O for Last 24 hours: Intake & Output 06/20/19 06/21/19 06/22/19 06/23/19 11:59 11:59 11:59 11:59 Intake Total 3034 / 3034 Balance 3034 / 3034 Weight 206 lb 3 oz 210 lb 6 oz Assessment and Plan (1) Chest pain Current visit: Yes Status: Acute Qualifiers: Chest pain type: precordial pain Qualified Code(s): R07.2 - Precordial pain Category: Medical Code(s): R07.9 - Chest pain, unspecified (2) Heroin addiction Current visit: Yes Status: Chronic Category: Medical Code(s): F11.20 - Opioid dependence, uncomplicated (3) Tobacco use Current visit: Yes Status: Chronic Category: Medical Code(s): Z72.0 - Tobacco use (4) Obesity (BMI 30.0-34.9) Current visit: Yes Status: Chronic Category: Medical Code(s): E66.9 - Obesity, unspecified (5) Hypertension Current visit: Yes Status: Acute Category: Medical Code(s): I10 - Essential (primary) hypertension - Assessment and plan all Dx Assessment and Plan for all problems:: Patient seen and examined. Concur with above.
--- NOTE | 2019-06-23 08:56 | Discharge Summary ---
General - General Admission date:: 06/22/19 <Pee Best - 06/26/19 08:24> 06/22/19 <Pam Mae - 06/23/19 08:58> Discharge date: 06/23/19 <Pam Mae - 06/23/19 08:58> HPI HPI: Ms. Cortez is a 43-year-old female with a history of alcoholism and IV drug usage who presented to [facility] emergency room via ambulance from drug rehab center in [facility]. She states she has been there for 9 to 10 days detoxing and rehabing from IV heroin usage. She has been having chest discomfort for the past 3 to 4 days which has occured nightly after going to bed. She describes last night as being the worst with midsternal chest discomfort associated with her heart pounding and discomfort radiating down her left arm. She was also short of breath. She describes some nausea and no vomiting. EMS was notified and she was brought to the hospital. In route she received nitroglycerin which did relieve her symptoms. Cardiology was consulted in the emergency room and admission was advised. <Pam Mae - 06/23/19 08:58> Hospital Course Hospital Course: The patient's chest x-ray showed a patchy density in the left lung base suggesting an infiltrate. Her physical exam and WBC were not consistent with this finding. Cardiology was consulted. Her troponins were normal. They ordered a stress test which returned abnormal. They recommended a left heart cath. The patient's heart cath returned normal and cardiology recommended medical management. They felt she was stable from a cardiac standpoint to be discharged back to her detox facility. They did recommend Toprol-XL 25 mg daily and Lipitor 20 mg daily. The patient felt well after her heart cath. She was able to rest well and denied any further pain. She was stable to be discharged back to her rehab facility. <Pam Mae - 06/23/19 08:58> Objective Vital signs: Temp Pulse Resp BP Pulse Ox 98.1 F 71 18 119/78 98 06/23/19 08:00 06/23/19 08:00 06/23/19 08:00 06/23/19 08:00 06/23/19 08:00 <Pee Best - 06/26/19 08:24> Temp Pulse Resp BP Pulse Ox 98.3 F 64 18 112/67 97 06/23/19 04:00 06/23/19 04:00 06/23/19 04:00 06/23/19 04:00 06/23/19 04:00 <Pam Mae - 06/23/19 08:58> Narrative: - Constitutional no acute distress - *Routine Respiratory Exam Present: CTA bilaterally - *Routine Cardiovascular Exam Present: RRR - *Routine Abdominal Exam Present: soft, normoactive bowel sounds. Absent: tenderness - *Routine Extremities Exam Absent: cyanosis, clubbing, edema - *Routine Skin Exam Present: warm. Absent: rash - *Routine Neurological Exam Present: alert, oriented X3 <Pam Mae - 06/23/19 08:58> Results Labs on day of discharge: Labs from last 24 hours 06/23/19 06/23/19 06/23/19 05:57 05:57 05:57 WBC 8.3 RBC 4.67 Hgb 13.6 Hct 42.1 MCV 90.2 MCH 29.0 MCHC 32.2 RDW 14.3 Plt Count 321 MPV 7.6 Neut % (Auto) 53.4 Lymph % (Auto) 38.4 [place] % (Auto) 6.0 Eos % (Auto) 1.3 Baso % (Auto) 0.9 Neut # (Auto) 4.4 Lymph # (Auto) 3.2 [place] # (Auto) 0.5 Eos # (Auto) 0.1 Baso # (Auto) 0.1 Sodium 140 Potassium 3.9 Chloride 108 H Carbon Dioxide 25 Anion Gap 10.9 BUN 9 D Creatinine 0.66 Estimated Creat Clear 164 Estimated GFR 98 Est GFR ( Amer) 119 Glucose 91 Calcium 8.9 Magnesium 2.1 Total Bilirubin Direct Bilirubin Indirect Bilirubin AST ALT Alkaline Phosphatase Total Protein Albumin Triglycerides 62 Cholesterol 102 L LDL Cholesterol 45 VLDL Cholesterol 12 HDL Cholesterol 45 Cholesterol/HDL Ratio 2.3 Serum HCG, Qual 06/22/19 06/22/19 13:55 07:50 WBC RBC Hgb Hct MCV MCH MCHC RDW Plt Count MPV Neut % (Auto) Lymph % (Auto) [place] % (Auto) Eos % (Auto) Baso % (Auto) Neut # (Auto) Lymph # (Auto) [place] # (Auto) Eos # (Auto) Baso # (Auto) Sodium Potassium Chloride Carbon Dioxide Anion Gap BUN Creatinine Estimated Creat Clear Estimated GFR Est GFR ( Amer) Glucose Calcium Magnesium Total Bilirubin 0.2 Direct Bilirubin 0.1 Indirect Bilirubin 0.1 AST 7 L ALT 15 Alkaline Phosphatase 96 Total Protein 6.9 Albumin 3.6 Triglycerides 101 Cholesterol 99 L LDL Cholesterol 36 VLDL Cholesterol 20 HDL Cholesterol 43 Cholesterol/HDL Ratio 2.3 Serum HCG, Qual Negative <Pam Mae - 06/23/19 08:58> DS: Diagnosis - Discharge Diagnosis (1) Chest pain Status: Acute (2) Heroin addiction Status: Chronic (3) Tobacco use Status: Chronic (4) Obesity (BMI 30.0-34.9) Status: Chronic (5) Hypertension Status: Acute <Pam Mae 06/23/19 08:51> (1) Chest pain Status: Acute (2) Heroin addiction Status: Chronic (3) Tobacco use Status: Chronic (4) Obesity (BMI 30.0-34.9) Status: Chronic (5) Hypertension Status: Acute <Pee Best - 06/26/19 08:24> Discharge Plan - Patient Discharge Instructions ACTIVITY: Continue current activity, Ambulate as tolerated <Pam Mae - 06/23/19 08:58> DIET: low salt diet <Pam Mae - 06/23/19 08:58> Patient Instructions: Heart-Healthy Diet, DI for Angina, DI for Cardiac Catheterization, DI for Anxiety -- Adult, DI for Surgical Site Infection, How to Quit Tobacco Products <Pee Best - 06/26/19 08:24> Forms: <Pee Best - 06/26/19 08:24> - Follow up Plan Follow up with: Seth Vargas MD [Staff Physician] - 07/04/19 1:00 pm <Pee Best - 06/26/19 08:24> Unknown provider or service follow up:: 06/22/19 12:46 PCP and statistical clerk <Pam Mae - 06/23/19 08:58> Disposition: Xfer Inpatient Rehab Fac <Pee Best - 06/26/19 08:24> Home Medications: Home Medications Medication Instructions Recorded Confirmed Type Albuterol Sulfate [Albuterol HFA 1 - 2 puffs IH Q4-6H PRN 06/22/19 06/22/19 History Inhaler] Atorvastatin Calcium [Lipitor 20mg 20 mg PO HS tab 06/22/19 Rx Tablet] Metoprolol Succinate [Toprol XL 25 mg PO DAILY tab.er.24h 06/22/19 Rx 25mg tablet] Quetiapine Fumarate [Seroquel 100 mg PO HS 06/22/19 06/22/19 History 100mg tablet] Sertraline HCl [Zoloft 50mg tablet] 50 mg PO DAILY 06/22/19 06/22/19 History hydrOXYzine pamoate [Vistaril] 50 mg PO TID 06/22/19 06/22/19 History <Pee Best - 06/26/19 08:24> Prescriptions/Medication Reconciliation: New Atorvastatin Calcium [Lipitor 20mg Tablet] 20 mg PO HS tab Metoprolol Succinate [Toprol XL 25mg tablet] 25 mg PO DAILY tab.er.24h Continued Sertraline HCl [Zoloft 50mg tablet] 50 mg PO DAILY Albuterol Sulfate [Albuterol HFA Inhaler] 1 - 2 puffs IH Q4-6H PRN PRN Reason: Shortness Of Breath Or Wheezing Quetiapine Fumarate [Seroquel 100mg tablet] 100 mg PO HS hydrOXYzine pamoate [Vistaril] 50 mg PO TID <Pee Best - 06/26/19 08:24> - Problem Reconciliation Problems Reviewed?: Yes <Pee Best - 06/26/19 08:24> Yes <Pam Mae - 06/23/19 08:58> - Additional Information Additional Information: Patient seen and examined. Concur with plan for discharge as outlined above. <Pee Best - 06/26/19 08:24>
--- NOTE | 2019-06-23 12:59 | Electrocardiograph Report ---
APPROVED REPORT Exam: Resting ECG HR:89 bpm ECG Measurements Heart Rate 89 AXES OK 114 P 56 QRSd 72 QRS 42 QT 364 T10 QTc 442 <Conclusion> Normal sinus rhythm Nonspecific T wave abnormality Abnormal ECG Electronically signed by : Deonte Monique, 06/23/2019 12:58:40
--- NOTE | 2019-06-23 15:22 | Cardiology Report ---
APPROVED REPORT Exam: Exercise Treadmill Technologist: Alta Lutz Ht: 5 ft 5 in Wt: 206 lbs BSA: 2.00 m2 HR: 81 bpm BP: 140/89 mmHg Indications: Chest pain Medical History Medications: Sertraline,,,,, Albuterol MDI,,,,, Quetiapine,,,,, Hydroxyzine,,,,, Stress Test Details Test: Macario HR Resting HR: 92 bpmMax Heart Rate (APMHR): 178 bpm Max HR Achieved: 147 bpmTarget HR (85% APMHR): 151 bpm % of APMHR: 82 Recovery HR: 97 bpm BP Resting BP: 140.0/89.0 mmHg Max BP: 160.0/90.0 mmHg Recovery BP: 150.0/81.0 mmHg ECG Clinical Exercise duration: 06:41 min Highest Stage Achieved: Exercise capacity: 7.0 METs Stress ECG Conclusion Symptoms: Chest pain, and shortness of breath. Test stopped due to leg fatigue. Arrhythmias/Ectopy: None ST-T Changes: < 1.[address] depression. Normal exercise treadmill stress test Test Summary REST.......Sitting REST.......Standing REST31:260.00.092.140/ 89.. Stage 101:0010.01.7102.... Stage 102:0010.01.7105.... Stage 103:0010.01.7111.144/ 86.. Stage 201:0012.02.5124.... Stage 2.......Shortness of Breath Stage 202:0012.02.5122.... Stage 2.......Chest pain Stage 203:0012.02.5130.150/ 86.. Stage 300:4114.03.4138...Stop exercise at 06:41 YBKGIOUM16:000.00.0122.... ENCRABEV40:000.00.0109.160/ 90.. IPNZLSEN64:000.00.091.141/101.. GTUBXRLS00:000.00.096.141/101.. PUQFTVTV28:000.00.098.150/ 81.. XZQLGEIM34:240.00.091.150/ 81.. Electronically signed by : Blake Bowman, 06/23/2019 15:21:20
--- NOTE | 2019-06-28 05:47 | Cardiology Report ---
APPROVED REPORT EXAM: Comprehensive 2D, Doppler, and color-flow Echocardiogram Research Nurse: Bri Monteiro RT(R) Ht: 5 ft 5 in Wt: 203lbs BSA: 1.99 BP: 123/76 mmHg Indications: CP, history of alcoholism and IV heroin usage, smoker 2D Dimensions LVOT 2.46 cm (M/F) 1.5-2.5 M-Mode Dimensions RVDd 2.06 cm (0.9-2.6)LVDd 4.88 cm (3.5-5.7) LVDs 3.24 cm (3.5-5.7)IVSd 0.72 cm (0.6-1.1) PWd 1.11 cm (0.6-1.1)EF (Teich) 62.20% FS 33.60% EDV (Teich) 111.70 mL ESV (Teich) 42.20 mL LV Diastology E/A Ratio 1.26 Mitral Valve MV A Velocity 47.00 (40-130 cm/s) Left Ventricle Left atrium is normal size, left ventricle is normal size, there is no concentric left ventricular hypertrophy, visually estimated ejection fraction of 55% with no regional wall motion abnormality, diastolic parameters are within normal range. Right Ventricle Right atrium and right ventricular normal size and contractility. Aortic Valve Aortic valve is minimally thickened and fibrosed. There is no aortic stenosis or aortic insufficiency. Mitral Valve Mitral valve is grossly normal, there is mild mitral regurgitation. Tricuspid Valve Tricuspid valve is grossly normal, there is mild tricuspid regurgitation, tricuspid regurgitation jet velocity is inadequate for calculation of the right ventricular systolic pressure. Pulmonic Valve Pulmonic valve is poorly visualized. Great Vessels Aortic root is normal size. Pericardium No significant pericardial effusion noted. Conclusion 1. Normal left ventricular size, preserved left ventricular systolic function, visually estimated ejection fraction 55% with no regional wall motion abnormality, diastolic parameters are within normal range. 2. Mild mitral and tricuspid regurgitation. 3. No significant pericardial effusion noted. Electronically signed by : Blake Bowman, 06/28/2019 05:47:35
== END 2019-06-23 11:41 | disposition home or self-care (01) ==
LOC: 2ND 01:24 → ER 01:24 → 2ND 06:21
PROVIDERS: ADMIT Family Medicine; ATTEND Family Medicine
CPT/HCPCS: 36415; 71020; 71046; 80048; 80061; 80076; 80305; 81001; 81025; 83735; 83880; 84484; 84703; 85025; 85651; 86140; 93005; 93017; 93306; 93458; 96365; 99152; 99284; C1725; C1769; G0378; J1644; Q9967